=== PATIENT | female | born 1960 | race Caucasian/White ===

== ENCOUNTER 2019-10-17 15:03 | Emergency (ER) | payer BC ==
[~2019-10-17] VITALS: Ht 165.1 cm; Wt 83.9 kg
[2019-10-17 15:09] VITALS: BP_SYST 156
--- NOTE | 2019-10-17 15:09 | NUR ---
Placed in room 3 . Placed on property assessment monitor, blood pressure machine and pulse oximeter. To gown for exam. Side rails up.
--- NOTE | 2019-10-17 15:10 | NUR ---
EKG performed at BS. Physician given copy of EKG for review.
--- NOTE | 2019-10-17 15:15 | NUR ---
pt arrives from home w/ c/o dull 5/10 CP that radiates to the back. Pt denies any cough and is currently afebrile.
--- NOTE | 2019-10-17 15:20 | NUR ---
RONNIE Hutchison at bedside examining patient.
--- NOTE | 2019-10-17 15:30 | NUR ---
#20 gauge angiocath placed to R AC. Use of asceptic technique. Opsite placed over site. Blood return noted. Blood for lab drawn from site. Flushed with 10 cc of normal saline. No evidence of infiltration noted. Patient tolerated well.
--- NOTE | 2019-10-17 15:40 | NUR ---
medicated the pt per MD order. Will reassess
[2019-10-17] MEDS ORDERED: ASPIRIN 325 MG TABLET PO ONE (15:45)
[2019-10-17] MEDS ORDERED: MAG HYDROX/AL HYDROX/SIMETH 30 ML, DICYCLOMINE HCL 20 MG, LIDOCAINE VISCOUS 2% 15ML (PO... PO ONE ×3 (15:45)
[2019-10-17] MEDS ORDERED: hydrALAZINE HCL 20 MG/ML VIAL IVP ONE (15:45)
[2019-10-17 15:46] LABS: BILIRUBIN,URINE NEGATIVE (NEGATIVE); BLOOD, URINE 2+ (NEGATIVE); CLARITY/URINE CLEAR (CLEAR); COLOR,URINE YELLOW (YELLOW); GLUCOSE,URINE NEGATIVE (NEGATIVE); KETONES,URINE NEGATIVE (NEGATIVE); LEUKOCYTE ESTERASE ,URINE TRACE (NEGATIVE); NITRITE, URINE NEGATIVE (NEGATIVE); PROTEIN URINE NEGATIVE (NEGATIVE); UROBILINOGEN,URINE 0.2 (0.2-1.0)
[2019-10-17 15:52] LABS: BASOPHILS % (AUTO) 0.5 % (0.0-2.0); EOSINOPHILS # (AUTO) 0.2 K/uL (0.0-0.4); EOSINOPHILS % (AUTO) 2.1 % (0.0-4.0); HEMATOCRIT 36.7 % (36-48); HEMOGLOBIN 12.6 g/dL (12.0-16.0); LYMPHOCYTES # (AUTO) 3.3 K/uL (1.0-5.5); LYMPHOCYTES % (AUTO) 37.6 % (20.5-51.5); MEAN CORPUSCULAR HEMOGLOBIN 31 pg (27-31); MEAN CORPUSCULAR HGB CONC 34 % (32-36); MEAN CORPUSCULAR VOLUME 91 fL (79.0-98.0); MONOCYTES # (AUTO) 0.8 K/uL (0.0-1.0); MONOCYTES % (AUTO) 8.8 % (1.7-9.3); NEUTROPHILS # (AUTO) 4.4 K/uL (1.8-7.7); PLATELET COUNT (AUTO) 305 K/uL (130-430); RED BLOOD CELL COUNT(AUTO) 4.04 MIL/uL (4.2-6.2); WHITE BLOOD COUNT (AUTO) 8.6 K/uL (4.8-10.8)
[2019-10-17 16:04] LABS: ANION GAP 6 (5-15); CHLORIDE 103 mmol/L (98-107); GLUCOSE 92 mg/dL (70-99); POTASSIUM 3.7 mmol/L (3.5-5.1); SODIUM SERUM 138 mmol/L (136-145); UREA NITROGEN, BLOOD 23 mg/dL (8-21)
[2019-10-17 16:06] LABS: GFR AFRICAN AMERICAN 83 mL/min (>90)
[2019-10-17 16:09] LABS: BACTERIA,URINE FEW /HPF (None Seen)
--- NOTE | 2019-10-17 16:10 | NUR ---
pt reports feeling better. Current pain level is 0/10
[2019-10-17 16:27] LABS: ALANINE AMINOTRANSFERASE 27 U/L (12-78); ASPARTATE AMINOTRANSFERASE 18 U/L (10-37); TOTAL BILIRUBIN 0.2 mg/dL (0.0-1.0)
[2019-10-17 16:45] VITALS: BP_SYST 140
--- NOTE | 2019-10-17 16:45 | NUR ---
Patient given written and verbal discharge instructions and verbalizes understanding. ER MD discussed with patient the results and treatment provided. Patient in stable condition. ID arm band removed. IV catheter removed intact and dressing applied, no active bleeding.Rx of Prilosec given. Patient educated on pain management and to follow up with PMD. Pain Scale 0/10.Opportunity for questions provided and answered. Medication side effect fact sheet provided.
== END 2019-10-17 16:45 | disposition home or self-care (01) ==
LOC: SED 15:03
DX: K29.70 Gastritis, unspecified, without bleeding (principal); I10 Essential (primary) hypertension; K21.9 Gastro-esophageal reflux disease without esophagitis
CPT/HCPCS: 36415; 71045; 80053; 81000; 84484; 85025; 87086; 93005; 96374; 99284; J0360; J2001

== ENCOUNTER 2024-02-11 08:52 | Outpatient (CLI) | payer BC | END 2024-02-11 20:59 | disposition home or self-care (01) | LOC: SCA 08:52 | PROVIDERS: ATTEND Internal Medicine Cardiovascular Disease | DX: I08.1 Rheumatic disorders of both mitral and tricuspid valves (principal); R00.2 Palpitations | CPT/HCPCS: 93306 ==